=== PATIENT | male | born 1955 | race Caucasian/White ===

== ENCOUNTER 2021-03-19 11:14 | Outpatient (REF) | payer OTHER, SELFPAY | END 2021-03-19 11:15 | disposition home or self-care (01) | LOC: HO.BBR 11:14 | PROVIDERS: PCP Physician Assistant Medical; Visit Provider Internal Medicine Hematology & Oncology | DX: Z13.89 Encounter for screening for other disorder (principal) ==

== ENCOUNTER 2021-03-27 10:44 | Outpatient (REF) | payer OTHER, SELFPAY | END 2021-03-27 10:45 | disposition home or self-care (01) | LOC: HO.BBR 10:44 | PROVIDERS: Visit Provider Internal Medicine Hematology & Oncology | DX: Z13.89 Encounter for screening for other disorder (principal) ==

== ENCOUNTER 2021-04-02 11:40 | Outpatient (REF) | payer OTHER, SELFPAY | END 2021-04-02 11:41 | disposition home or self-care (01) | LOC: HO.BBR 11:40 | PROVIDERS: Visit Provider Internal Medicine Hematology & Oncology | DX: Z13.89 Encounter for screening for other disorder (principal) ==

== ENCOUNTER 2021-04-09 11:50 | Outpatient (REF) | payer OTHER, SELFPAY | END 2021-04-09 11:51 | disposition home or self-care (01) | LOC: HO.BBR 11:50 | PROVIDERS: Visit Provider Internal Medicine Hematology & Oncology | DX: Z13.89 Encounter for screening for other disorder (principal) ==

== ENCOUNTER 2021-04-16 11:48 | Outpatient (REF) | payer OTHER, SELFPAY | END 2021-04-16 11:49 | disposition home or self-care (01) | LOC: HO.BBR 11:48 | PROVIDERS: Visit Provider Internal Medicine Hematology & Oncology | DX: Z13.89 Encounter for screening for other disorder (principal) ==

== ENCOUNTER 2021-04-23 11:51 | Outpatient (REF) | payer OTHER, SELFPAY | END 2021-04-23 11:52 | disposition home or self-care (01) | LOC: HO.BBR 11:51 | PROVIDERS: Visit Provider Internal Medicine Hematology & Oncology | DX: Z13.89 Encounter for screening for other disorder (principal) ==

== ENCOUNTER 2021-04-30 11:53 | Outpatient (REF) | payer OTHER, SELFPAY | END 2021-04-30 11:54 | disposition home or self-care (01) | LOC: HO.BBR 11:53 | PROVIDERS: Visit Provider Internal Medicine Hematology & Oncology | DX: Z13.89 Encounter for screening for other disorder (principal) ==

== ENCOUNTER 2021-05-07 11:38 | Outpatient (REF) | payer OTHER, SELFPAY | END 2021-05-07 11:39 | disposition home or self-care (01) | LOC: HO.BBR 11:38 | PROVIDERS: Visit Provider Internal Medicine Hematology & Oncology | DX: Z13.89 Encounter for screening for other disorder (principal) ==

== ENCOUNTER 2021-05-14 11:55 | Outpatient (REF) | payer OTHER, SELFPAY | END 2021-05-14 11:56 | disposition home or self-care (01) | LOC: HO.BBR 11:55 | PROVIDERS: Visit Provider Internal Medicine Hematology & Oncology | DX: Z13.89 Encounter for screening for other disorder (principal) ==

== ENCOUNTER 2021-06-04 11:47 | Outpatient (REF) | payer OTHER, SELFPAY | END 2021-06-04 11:48 | disposition home or self-care (01) | LOC: HO.BBR 11:47 | PROVIDERS: Visit Provider Internal Medicine Hematology & Oncology | DX: Z13.89 Encounter for screening for other disorder (principal) ==

== ENCOUNTER 2021-06-11 11:57 | Outpatient (REF) | payer OTHER, SELFPAY | END 2021-06-11 11:58 | disposition home or self-care (01) | LOC: HO.BBR 11:57 | PROVIDERS: Visit Provider Internal Medicine Hematology & Oncology | DX: Z13.89 Encounter for screening for other disorder (principal) ==

== ENCOUNTER 2021-06-18 11:57 | Outpatient (REF) | payer OTHER, SELFPAY | END 2021-06-18 11:58 | disposition home or self-care (01) | LOC: HO.BBR 11:57 | PROVIDERS: Visit Provider Internal Medicine Hematology & Oncology | DX: Z13.89 Encounter for screening for other disorder (principal) ==

== ENCOUNTER 2021-06-25 12:01 | Outpatient (REF) | payer OTHER, SELFPAY | END 2021-06-25 12:02 | disposition home or self-care (01) | LOC: HO.BBR 12:01 | PROVIDERS: Visit Provider Internal Medicine Hematology & Oncology | DX: Z13.89 Encounter for screening for other disorder (principal) ==

== ENCOUNTER 2021-07-02 12:51 | Outpatient (REF) | payer OTHER, SELFPAY | END 2021-07-02 12:52 | disposition home or self-care (01) | LOC: HO.BBR 12:51 | PROVIDERS: Visit Provider Internal Medicine Hematology & Oncology | DX: Z13.89 Encounter for screening for other disorder (principal) ==

== ENCOUNTER 2021-07-09 11:13 | Outpatient (REF) | payer OTHER, SELFPAY | END 2021-07-09 11:14 | disposition home or self-care (01) | LOC: HO.BBR 11:13 | PROVIDERS: Visit Provider Internal Medicine Hematology & Oncology | DX: Z13.89 Encounter for screening for other disorder (principal) ==

== ENCOUNTER 2021-09-24 10:54 | Outpatient (REF) | payer MEDICARE, OTHER, SELFPAY | END 2021-09-24 10:55 | disposition home or self-care (01) | LOC: HO.BBR 10:54 | PROVIDERS: Visit Provider Internal Medicine Hematology & Oncology | DX: Z13.89 Encounter for screening for other disorder (principal) ==

== ENCOUNTER 2021-11-25 10:57 | Outpatient (REF) | payer MEDICARE, OTHER, SELFPAY | END 2021-11-25 10:58 | disposition home or self-care (01) | LOC: HO.BBR 10:57 | PROVIDERS: Visit Provider Internal Medicine Hematology & Oncology | DX: Z13.89 Encounter for screening for other disorder (principal) ==

== ENCOUNTER 2022-02-25 10:56 | Outpatient (REF) | payer MEDICARE, OTHER, SELFPAY | END 2022-02-25 10:57 | disposition home or self-care (01) | LOC: HO.BBR 10:56 | PROVIDERS: Visit Provider Internal Medicine Hematology & Oncology | DX: Z13.89 Encounter for screening for other disorder (principal) ==

== ENCOUNTER 2022-07-01 11:09 | Outpatient (REF) | payer MEDICARE, OTHER, SELFPAY | END 2022-07-01 11:10 | disposition home or self-care (01) | LOC: HO.BBR 11:09 | PROVIDERS: Visit Provider Internal Medicine Hematology & Oncology | DX: Z13.89 Encounter for screening for other disorder (principal) ==